=== PATIENT | male | born 1990 ===

== ENCOUNTER 2018-05-22 17:28 | Emergency (ER) | payer MEDICAID ==
[~2018-05-22] VITALS: Ht 172.7 cm; Wt 74.0 kg
[2018-05-22 17:30] VITALS: BP 139/73
== END 2018-05-22 19:11 | disposition home or self-care (01) ==
LOC: ER 17:28
DX: F10.10 Alcohol abuse, uncomplicated (principal); F17.210 Nicotine dependence, cigarettes, uncomplicated
CPT/HCPCS: 99281